=== PATIENT | female | born 1960 | race Caucasian/White ===

== ENCOUNTER 2022-10-31 02:54 | Day surgery (SDC) | payer MEDICARE, MEDICAID, SELFPAY ==
[2022-10-24 18:13] VITALS: BMI 31.0
--- NOTE | 2022-10-24 18:14 | SUR.PREOP ---
Report to the Outpatient Waiting Room, entrance under the green pavilion located off [facility], at time _0700 on date _10/31/22 . Planned Procedure Time: _0900 . Time changes happen often and if your time is changed the preop area will call you the afternoon before. - You and your visitor will be asked to self-screen and do not enter if you have any COVID symptoms. - A mask is optional within the hospital at this time. Patients may have clear liquids (water, carbonated beverages, clear teas, apple juice) until 3 hours prior to surgery with a maximum of 20 ounces. - No food from midnight until time of surgery - Infants may have breast milk until 4 hours before surgery, infant formula 6 hours prior to surgery. - Children will be allowed to drink immediately following surgery. If applicable, please bring a bottle or sippy cup to assist with drinking. Juice, water, soda, and popsicles are readily available. For infants on formula, please bring formula the day of surgery. Pacifiers are allowed. Take the following medications with a SIP of water the morning of surgery: _BUSPIRONE,ESCITALAPRAM,GABAPENTIN,___OXYCODONE____BRING ALBUTEROL INHALER DO NOT STOP ANY OF YOUR OTHER PRESCRIPTION MEDICATIONS PRIOR TO SURGERY ?EXCEPT THE FOLLOWING Medications to discontinue per physician VITAMIN SUPPLEMENTS Date to take last dose___10/28/22 Please no make-up, nail belgian, hairspray, perfume, deodorant, or body powder the day of surgery. No jewelry (including any body piercings) or valuables the day of surgery, leave them at home. Please take a shower or bath the night before, or the morning of, surgery with an antibacterial soap. Wear comfortable, loose fitting clothing. Children are encouraged to wear pajamas. - Jewelry must be removed prior to entering the operating room. Rings and piercings that are not removed may be cut off. - The hospital will not accept responsibility for valuables. - Please leave all valuables, including medications, at home the day of surgery. If you are going home after surgery, a licensed transit driver must drive you home. - NO public transportation without another adult if you receive anesthesia. - We recommend that an adult stay with you for 24 hours following discharge. - We also recommend that you do not drive, make important decision, drink alcoholic beverages, or take any drugs that were not prescribed by your health care provider for at least 24 hours after your discharge time. For Pediatric surgeries, we recommend two adults accompany the child home. Follow any additional instructions given to you from your surgeon. If you or anyone in your household have experienced Covid symptoms in the past week, please notify your surgeon or the nurse liaison at the phone number below for possible testing. Telephone instructions given to ALEXANDRE LEA and asked if any additional questions and then verbalized understanding. Patient advised to call surgeon office or pre surgery nurse liaison [phone] if any additional questions.
--- NOTE | 2022-10-29 18:25 | PM.IMHP ---
H&P: HPI History of Present Illness Date/Time: 10/29/22 18:25 Chief Complaint: urinary incontinence Narrative: she is mixed incontinence. She has urge and stress incontinence on urodynamics. For urge incontinence she is tried multiple interventions including Botox. She no longer does Botox. She has bothersome stress incontinence who would like a surgical treatment Review of Systems Review of Systems: All systems reviewed & are unremarkable except as noted in HPI and below PMFSH Social History Social History Smoking status: Never smoker Living arrangements: alone Spiritual care concerns: No Meds Home Medications and Allergies Home Medications Medication Instructions Recorded Confirmed Type albuterol sulfate 90 mcg/actuation 90 mcg inhalation PRN PRN sob 10/24/22 10/24/22 History aerosol inhaler amitriptyline 25 mg tablet 25 mg PO HS 10/24/22 10/24/22 History buspirone 10 mg tablet 10 mg PO DAILY 10/24/22 10/24/22 History cyanocobalamin (vitamin B-12) 1,000 mcg IM WEEKLY 10/24/22 10/24/22 History 1,000 mcg/mL injection solution ergocalciferol (vitamin D2) 1,250 1,200 mcg PO 2XW 10/24/22 10/24/22 History mcg (50,000 unit) capsule escitalopram oxalate 10 mg tablet 10 mg PO DAILY 10/24/22 10/24/22 History furosemide 20 mg tablet 20 mg PO PRN 10/24/22 10/24/22 History gabapentin 600 mg tablet 1,800 mg PO BID 10/24/22 10/24/22 History hydroxyzine pamoate 25 mg capsule 25 mg PO DAILY 10/24/22 10/24/22 History meloxicam 15 mg tablet 15 mg PO DAILY 10/24/22 10/24/22 History montelukast 10 mg tablet 10 mg PO DAILY 10/24/22 10/24/22 History oxycodone 10 mg tablet 10 mg PO Q4H 10/24/22 10/24/22 History pantoprazole 20 mg tablet,delayed 20 mg PO DAILY 10/24/22 10/24/22 History release pregabalin 75 mg capsule 75 mg PO DAILY 10/24/22 10/24/22 History tramadol 50 mg tablet 50 mg PO DAILY 10/24/22 10/24/22 History trazodone 50 mg tablet 50 mg PO HS 10/24/22 10/24/22 History Allergies Allergy/AdvReac Type Severity Reaction Status Date / Time Cephalosporins Allergy Intermediate Hives Verified 10/24/22 17:40 erythromycin base Allergy Intermediate Rash Verified 10/24/22 17:40 morphine Allergy Intermediate Hives Verified 10/24/22 17:40 Penicillins Allergy Intermediate Hives Verified 10/24/22 17:40 lactose Allergy Mild STOMACH Unverified 10/24/22 17:40 CRAMPS, DIARRHEA tetracycline Allergy Mild Other Verified 10/24/22 17:40 Exam Narrative: no acute distress normal breathing alert oriented x3 Assessment and Plan Assessment and plan (1) Intrinsic sphincter deficiency (ISD): Code(s): N36.42 - Intrinsic sphincter deficiency (ISD) Status: Acute Assessment and Plan: plan for bulking agent. Understands risks of bleeding, infection, need repeat procedures, urinary tension. We discussed the efficacy.
--- NOTE | 2022-10-30 08:58 | WPDANESEPPF ---
Anes - Initial Pre Proc Eval Procedure: Operation Date: 10/31/22 09:00 Proposed Procedures p Cystoscopy, Injection Bulking Agent - Dominik Peters MD Date/Time: 10/30/22 08:58 Surgeon: Dominik Peters MD Pre Op Diagnosis: ID Patient Data Age: 62 Gender: F Height: 1.68 m Weight: 87.27 kg Allergies Allergy/AdvReac Type Severity Reaction Status Date / Time Cephalosporins Allergy Intermediate Hives Verified 10/31/22 07:12 erythromycin base Allergy Intermediate Rash Verified 10/31/22 07:12 morphine Allergy Intermediate Hives Verified 10/31/22 07:12 Penicillins Allergy Intermediate Hives Verified 10/31/22 07:12 lactose Allergy Mild STOMACH Verified 10/31/22 07:36 CRAMPS, DIARRHEA tetracycline Allergy Mild Other Verified 10/31/22 07:12 Home Medications Medication Instructions Recorded Confirmed Type albuterol sulfate 90 mcg/actuation 90 mcg inhalation PRN PRN sob 10/24/22 10/24/22 History aerosol inhaler amitriptyline 25 mg tablet 25 mg PO HS 10/24/22 10/24/22 History buspirone 10 mg tablet 10 mg PO DAILY 10/24/22 10/24/22 History cyanocobalamin (vitamin B-12) 1,000 mcg IM WEEKLY 10/24/22 10/24/22 History 1,000 mcg/mL injection solution ergocalciferol (vitamin D2) 1,250 1,200 mcg PO 2XW 10/24/22 10/24/22 History mcg (50,000 unit) capsule escitalopram oxalate 10 mg tablet 10 mg PO DAILY 10/24/22 10/24/22 History furosemide 20 mg tablet 20 mg PO PRN 10/24/22 10/24/22 History gabapentin 600 mg tablet 1,800 mg PO BID 10/24/22 10/24/22 History hydroxyzine pamoate 25 mg capsule 25 mg PO DAILY 10/24/22 10/24/22 History meloxicam 15 mg tablet 15 mg PO DAILY 10/24/22 10/24/22 History montelukast 10 mg tablet 10 mg PO DAILY 10/24/22 10/24/22 History oxycodone 10 mg tablet 10 mg PO Q4H 10/24/22 10/24/22 History pantoprazole 20 mg tablet,delayed 20 mg PO DAILY 10/24/22 10/24/22 History release pregabalin 75 mg capsule 75 mg PO DAILY 10/24/22 10/24/22 History tramadol 50 mg tablet 50 mg PO DAILY 10/24/22 10/24/22 History trazodone 50 mg tablet 50 mg PO HS 10/24/22 10/24/22 History Patient hx anesthesia problems: none Family hx anesthesia problems: none Results Review: All pre-operative results and documents have been reviewed as part of the pre-operative evaluation. [facility] Past Medical History Medical History (Updated 10/30/22 @ 08:59 by Gorge Alcantara DO) Anxiety Asthma Chronic, continuous use of opioids Depression Hemophilia Neuropathy Surgical History Surgical History (Updated 10/30/22 @ 08:59 by Gorge Alcantara DO) History of cholecystectomy History of spinal fusion Social History Social History Smoking status: Never smoker Living arrangements: alone Spiritual care concerns: No Anes - Eval Final PreProcedure Day of Procedure 10/30/22 08:58 Patient weight: obese Heart: regular rate and rhythm Lungs: clear to auscultation Airway: Mallampati scale class II Neurological: alert and oriented Last oral intake: >/= 8 hours ASA classification: III Emergent: no Anesthetic plan: proceed Anesthesia type and monitoring: general GIVS and standard monitoring Results Review: All pre-operative results and documents have been reviewed as part of the pre-operative evaluation. Informed Consent: The patient's anesthetic plan and its attendant risks and benefits were discussed with the patient/family/POA. Questions were solicited and answers provided to the satisfaction of the patient/family/POA.
[2022-10-31 07:10] VITALS: BP 108/73; PULSE 59; RESP 16; TEMP 35.9; O2SAT 100
--- NOTE | 2022-10-31 07:21 | WPDHPUPDATE1 ---
History and Physical Update Update Date/Time: 10/31/22 07:21 History and Physical has been reviewed, including an updated exam of the patient. There are NO changes in the patient's condition. Risks, benefits, and alternatives have been discussed and questions answered. Patient agrees to proceed with procedure.
[2022-10-31] MEDS: LACTATED RINGERS 1,000 ML 30 ML IV CONT (07:39)
[2022-10-31 07:52] LABS: Anion Gap 6 mmol/L (8-16); Blood Urea Nitrogen 14 mg/dL (7-17); Calcium 8.6 mg/dL (8.4-10.2); Carbon Dioxide 27 mmol/L (22-30); Chloride 106 mmol/L (98-107); Estimated CRCL calculation 97 ml/min; Estimated Glomerular Filt Rate > 60; Glucose 93 mg/dL (65-110); Potassium 3.6 mmol/L (3.4-5.0); Sodium 139 mmol/L (137-145)
[2022-10-31 07:58] LABS: INR 0.9; Partial Thromboplastin Time 27.5 SECONDS (22.3-36.8)
[2022-10-31] MEDS: levoFLOXacin 500 MG/D5W 100 ML 500 MG/100 ML BAG 100 MG IVPB (08:38)
[2022-10-31] MEDS: LIDOCAINE HCL 2% GEL UROJET 10 ML PKG MUCOUS MEM (08:53)
--- NOTE | 2022-10-31 08:55 | W.PM.PROC2 ---
Procedure Note - Detailed Date of Procedure 10/31/22 Pre-op Diagnosis Intrinsic sphincter deficiency Post-op Diagnosis Same Procedure Performed Cystoscopy with suburethral injection of implant material Surgeon Dominik Peters MD Facility Operations Manager None Anesthesia MAC and Local (Lidocaine jelly) Indications This is a with mixed incontinence. She has stress incontinence as well as overactive bladder. She is here today for treatment of her stress incontinence due to intrinsic sphincter deficiency. She understands risks of bleeding, infection, lack of efficacy, need for repeat procedures. She also understands it will not help overactive bladder some Findings Open urethra. Evidence of previous Durasphere injection Description of Procedure She has correctly identified. Informed consent obtained. She from the operating room. She was given MAC anesthesia. She was placed in dorsal lithotomy position. She was prepped and draped sterile fashion. She was given appropriate perioperative antibiotics. A time-out was performed Examination of the bladder revealed no abnormalities. Ureteral orifices were normal. There is no obvious tumors. I examined the urethra. There was evidence of previous bulking agent. Specifically Durasphere. This was unknown to me before the procedure. Her urethra was a bit scarred and there was limited vascularity. I chose a site 2 cm distal to bladder neck. I injected bulking agent circumferentially. I used 1-3/4 syringe total. There was good bulking effect and coaptation of the urethra. The bladder was left full. She was awakened transferred to PACU in stable condition Implants Bulking agent Estimated Blood Loss 1 Complications No immediate complications Condition Stable Disposition PACU
[2022-10-31 08:58] VITALS: BP 89/52; PULSE 50; RESP 16; O2SAT 99
[2022-10-31] MEDS: oxyCODONE HCL (*CRX) 5 MG TAB IR PO (09:20)
[2022-10-31 09:30] VITALS: BP 107/76; PULSE 55; RESP 16
== END 2022-10-31 09:43 | disposition home or self-care (01) ==
PROVIDERS: Anesthesiology; Visit Provider Urology
PROC: 3E0K8GC Introduction of Other Therapeutic Substance into Genitourinary Tract, Via Natural or Artificial Opening Endoscopic (ICD-10-PCS; CPT 51715; principal; 2022-10-31 09:00)
DX: N36.42 Intrinsic sphincter deficiency (ISD) (principal); N39.46 Mixed incontinence; J45.909 Unspecified asthma, uncomplicated; G62.9 Polyneuropathy, unspecified; F41.9 Anxiety disorder, unspecified; F32.A Depression, unspecified; D66 Hereditary factor VIII deficiency; Z98.1 Arthrodesis status; E66.9 Obesity, unspecified; Z68.33 Body mass index [BMI] 33.0-33.9, adult; Z79.51 Long term (current) use of inhaled steroids; Z79.891 Long term (current) use of opiate analgesic
CPT/HCPCS: 51715; 36415; 80048; 85610; 85730; A9270; J1956; J2704; J3010; J7120; L8606